=== PATIENT | female | born 1990 | race Caucasian/White ===

== ENCOUNTER 2024-05-18 09:40 | Outpatient (REF) | payer OTHER, SELFPAY ==
[2024-05-18 09:57] LABS: Basophils Absolute Auto 0.02 K/uL (0.00-0.30); Basophils Percent Auto 0.3 % (0.0-3.0); Eosinophils Absolute Auto 0.09 K/uL (0.00-0.50); Eosinophils Percent Auto 1.4 % (0.0-7.0); Hematocrit 38.8 % (33.0-51.0); Hemoglobin* 12.8 gm/dL (12.0-16.0); Immature Granulocytes Abs Auto 0.01 K/uL (0.00-0.30); Immature Granulocytes Pct Auto 0.2 %; Lymphocytes Absolute Auto 2.33 K/uL (0.90-2.90); Lymphocytes Percent Auto 36.2 % (20-44); Mean Corpuscular HGB Conc 33 gm/dL (32-36); Mean Corpuscular Hemoglobin 29 pg (26-34); Mean Corpuscular Volume 88 fL (80-100); Monocytes Percent Auto 6.2 % (0.0-11.0); Neutrophils Absolute Auto 3.59 K/uL (1.7-7.0); Neutrophils Percent Auto 55.7 % (42.0-72.0); Platelet Count* 312 K/uL (140-440); RDW Coefficient of Variation % 11.6 % (11.5-15.5); White Blood Count* 6.44 K/uL (4.50-11.00)
[2024-05-18 09:59] LABS: Albumin* 4.3 g/dL (3.3-5.0); Chloride* 103 mmol/L (96-114); Sodium* 139 mmol/L (135-149)
[2024-05-18 10:00] LABS: Potassium* 3.8 mmol/L (3.6-5.1)
[2024-05-18 10:02] LABS: Alkaline Phosphatase* 74 U/L (40-150); Anion Gap 7 mEq/L (7-15); Aspartate Amino Transferase* 23 U/L (12-35); Bilirubin Total* 0.5 mg/dL (0.1-1.5); Blood Urea Nitrogen* 7 mg/dL (5-24); Carbon Dioxide* 29 mmol/L (20-32); Creatinine* 0.6 mg/dL (0.5-1.5); Estimated Glomerular Filt Rate 121 ml/min; Slide Review Reflex No; Total Protein* 6.7 g/dL (6.0-8.3)
[2024-05-18 10:03] LABS: Alanine Aminotransferase* 14 U/L (4-35); Calcium* 9.3 mg/dL (8.4-10.6); Glucose* 97 mg/dL (60-115)
== END 2024-05-18 09:41 | disposition home or self-care (01) ==
LOC: NPINS 09:40
PROVIDERS: PCP Family Medicine; Visit Provider Student in an Organized Health Care Education/Training Program
DX: F41.1 Generalized anxiety disorder (principal); F31.32 Bipolar disorder, current episode depressed, moderate
CPT/HCPCS: 80053; 80189; 85025